=== PATIENT | female | born 1995 ===

== ENCOUNTER 2024-04-23 23:05 | Inpatient (IN) | payer BC ==
[2024-04-24 01:11] VITALS: BP 126/82
[2024-04-24] MEDS ORDERED: LIDOCAINE 2% VISCOUS 6 ML SYR TOP ONE ×4 (01:15→13:45)
[2024-04-24] MEDS ORDERED: MAGNESIUM HYDROXIDE/AL HYDROX 30 ML CUP PO PRN ×2 (01:15→13:45)
[2024-04-24] MEDS ORDERED: PENICILLIN G POTASSIUM 5 MUNITS/110 ML PIGGYBACK IV ONE (01:15)
[2024-04-24] MEDS ORDERED: OXYTOCIN/DEXTROSE 5% 20 UNITS/100 ML BAG IV SCH (01:15)
[2024-04-24] MEDS ORDERED: CALCIUM CARBONATE 500 MG CHEW PO PRN ×2 (01:15→13:45)
[2024-04-24] MEDS ORDERED: PENICILLIN G POTASSIUM 2.5 MUNITS in DEXTROSE 5% 100 ML IV SCH (01:19)
[2024-04-24 01:22] LABS: HEMATOCRIT 38.4 % (35.0-50.0); MCH 29.7 (27-36); MCHC 33.8 g/dl (30-36); MCV 87.9 fl (81-99); RBC 4.38 M/ul (4.3-5.7); RDW 17.3 (10.5-15.0)
[2024-04-24 01:36] LABS: AMPHETAMINES, URINE NEGATIVE (NEGATIVE); BARBITURATES, URINE NEGATIVE (NEGATIVE); BENZODIAZEPINE, URINE NEGATIVE (NEGATIVE); BUPRENORPHINE, URINE NEGATIVE (NEGATIVE); CANNABINOID, URINE NEGATIVE (NEGATIVE); COCAINE, URINE NEGATIVE (NEGATIVE); ECSTASY, URINE NEGATIVE (NEGATIVE); FENTANYL, URINE NEGATIVE (NEGATIVE); METHADONE, URINE NEGATIVE (NEGATIVE); OPIATES, URINE NEGATIVE (NEGATIVE); OXYCODONE, URINE NEGATIVE (NEGATIVE); PHENCYCLIDINE, URINE NEGATIVE (NEGATIVE)
[2024-04-24 01:52] LABS: ABO O; ANTIBODY SCREEN NEGATIVE; RH POSITIVE
[2024-04-24] MEDS ORDERED: PENICILLIN G POTASSIUM 5 MUNITS/10 ML VIAL ONE (04:50)
--- NOTE | 2024-04-24 06:14 | PR ---
[facility] [address] [place], [place] [address] Signed Progress Notes IP Datetime Report Generated by CPN: 04/24/2024 06:14 PROGRESS NOTES: [id number] Other Impressions: extremely slow progression Procedures: Scalp Electrode Plan: Anesthesia Consult VITAL SIGNS: [id number] Vital Signs: Reviewed; Within Normal Limits EXAM: [id number] Dilatation: 8.0 Effacement: 90 Station: -1 MEMBRANES: [id number] Comments: Very slow progress--4.5 cm over 24 hrs and 1 cm over last 2.5 hrs. Suspect contractions are inadequate. Pt also exhausted as has been in 3 times over last 24 hrs. I feel stronger contractions are needed. Discussed this and she is ready for some pain management. I think epidural is best option to allow for her to rest. IUPC and pit augment can then be done. Also, no obvious forebag. She denies SROM. Unclear if or when this occurred. FETUS A: [id number] FHR Baseline: 160 Variability: Moderate 6-25bpm Accelerations: 15X15 Decelerations: Prolonged FHR Category: Category II Presentation: Vertex Comments on Fetus A: Prolonged deceleration _ 2-3 minutes; now improved. FETUS B: [id number] Signing Physician: Amber Kelley MD Copies: ~ *Electronically Signed* 04/24/24 0614 AMBER KELLEY MD PATIENT NAME: SHEBA SINGH PROGRESS NOTE DATE OF : 95 PHYSICIAN: AMBER KELLEY MD RPT #: [id number] REPORT IS CONFIDENTIAL AND NOT TO BE RELEASED WITHOUT AUTHORIZATION
[2024-04-24] MEDS ORDERED: ROPIVACAINE 0.2% 200 ML BAG ONE (06:15)
[2024-04-24] MEDS ORDERED: fentaNYL citrate 100 MCG/2 ML VIAL ONE (06:16)
[2024-04-24] MEDS ORDERED: ePHEDrine sulfate 50 MG/ML AMP ONE (06:44)
[2024-04-24] MEDS ORDERED: LACTATED RINGER'S 2,000 ML IV ONE (07:00)
[2024-04-24] MEDS ORDERED: ROPIVACAINE 0.2% 200 ML BAG EPIDURAL SCH (07:00)
[2024-04-24] MEDS ORDERED: ePHEDrine sulfate 5 MG/ML SYRINGE IV PRN (07:00)
[2024-04-24] MEDS ORDERED: LACTATED RINGER'S 500 ML IV PRN (07:00)
--- NOTE | 2024-04-24 07:02 | PR ---
[facility] [address] [facility] [place] [address] Signed Progress Notes IP Datetime Report Generated by CPN: 04/24/2024 07:02 PROGRESS NOTES: [id number] Other Impressions: extremely slow progression Procedures: Scalp Electrode Other Procedures: ephedrine Plan: Continue Present Management VITAL SIGNS: [id number] Vital Signs: Reviewed; Within Normal Limits EXAM: [id number] Dilatation: 8.0 Effacement: 90 Station: -1 MEMBRANES: [id number] Comments: Prolonged decel after epidural associated with drop in BP which has now returned to her baseline. status currently improved but still w/ decreased variability. Will continue w/ position changes and close observation. FETUS A: [id number] FHR Baseline: 160 Variability: Minimal - >Undetectable to <=5bpm Accelerations: 15X15 Decelerations: Prolonged FHR Category: Category II Presentation: Vertex Comments on Fetus A: Prolonged deceleration _ 2-3 minutes; now improved. FETUS B: [id number] Signing Physician: Amber Kelley MD Copies: ~ *Electronically Signed* 04/24/24701 AMBER KELLEY MD PATIENT NAME: SHEBA SINGH PROGRESS NOTE DATE OF : 95 PHYSICIAN: AMBER KELLEY MD RPT #: [id number] REPORT IS CONFIDENTIAL AND NOT TO BE RELEASED WITHOUT AUTHORIZATION
--- NOTE | 2024-04-24 07:42 | PR ---
[facility] [address] [facility] [place] [address] Signed Progress Notes IP Datetime Report Generated by CPN: 04/24/2024 07:42 PROGRESS NOTES: [id number] Other Impressions: extremely slow progression Procedures: Intrauterine Pressure Catheter Other Procedures: ephedrine Plan: Continue Present Management Other Plans: position changes VITAL SIGNS: [id number] Vital Signs: Reviewed; Within Normal Limits EXAM: [id number] Dilatation: 9.0 Effacement: 90 Station: -1 Contractions: q 5 min MEMBRANES: [id number] Comments: Some progress. Baby very particular about position but currently looks reassuring. I do think she needs more contractions but am reluctant to add pitocin given the status. Will allow to rest now and continue close observation. FETUS A: [id number] FHR Baseline: 160 Variability: Moderate 6-25bpm Accelerations: 15X15 Decelerations: Late; Variable FHR Category: Category II Presentation: Vertex Comments on Fetus A: Prolonged deceleration _ 2-3 minutes; now improved. FETUS B: [id number] Signing Physician: Amber Kelley MD Copies: ~ *Electronically Signed* 04/24/24 07 AMBER KELLEY MD PATIENT NAME: SHEBA SINGH PROGRESS NOTE DATE OF : 95 PHYSICIAN: AMBER KELLEY MD RPT #: [id number] REPORT IS CONFIDENTIAL AND NOT TO BE RELEASED WITHOUT AUTHORIZATION
[2024-04-24] MEDS ORDERED: MAGNESIUM HYDROXIDE 30 ML UDC PO PRN (13:45)
[2024-04-24] MEDS ORDERED: HYDROCORTISONE ACETATE 25 MG SUPP PR PRN (13:45)
[2024-04-24] MEDS ORDERED: OXYTOCIN/0.9 % SODIUM CHLORIDE 500 ML IV SCH (13:45)
[2024-04-24] MEDS ORDERED: WITCH HAZEL/GLYCERIN 1 EA PAD TOP PRN (13:45)
[2024-04-24] MEDS ORDERED: BENZOCAINE 60 ML AEROSOL TOP PRN (13:45)
[2024-04-24] MEDS ORDERED: HYDROCODONE/ACETA 5/325 TAB PO PRN (13:45)
[2024-04-24] MEDS ORDERED: IBUPROFEN 600 MG TAB PO PRN (13:45)
[2024-04-24] MEDS ORDERED: OXYCODONE HCL 5 MG TAB PO PRN (13:45)
[2024-04-24] MEDS ORDERED: ACETAMINOPHEN 325 MG TAB PO PRN (13:45)
[2024-04-24] MEDS ORDERED: OXYCODONE/APAP 5/325 TAB PO PRN (13:45)
[2024-04-24] MEDS ORDERED: SENNOSIDES/DOCUSATE 1 EA TAB PO SCH (21:00)
[2024-04-25 05:25] LABS: HEMATOCRIT 31.8 % (35.0-50.0); HEMOGLOBIN 10.6 g/dL (12.0-18.0); MCH 29.8 (27-36); MCHC 33.5 g/dl (30-36); RBC 3.57 M/ul (4.3-5.7); RDW 17.3 (10.5-15.0)
--- NOTE | 2024-04-25 08:01 | PR ---
[facility] [address] [facility] [place], [place] [address] Signed PP Progress Notes Datetime Report Generated by STACIA: 04/25/2024 08:01 SUBJECTIVE: [id number] Pain: Within Normal Limits Vital Signs: [id number] Vital Signs: Reviewed; Within Normal Limits Cardiovascular: Not Done Respiratory: Not Done Abdomen/Uterus: Abnormal Lochia: Normal Vulva/Perineum: Not Done Breasts: Not Done CVA Tenderness: Not Done Extremities: Normal Incision: Not Applicable Progress: Normal Exam Comments: Fundus firm, NT @ U-2. H/H 10.6/31.8, WBC 21.1, plat 132k IMPRESSION/PLAN/PROCEDURES: [id number] Impression: Normal Progression Plan: Continue Present Management Procedures: None Progress Notes: Mild thrombocytopenia--will repeat tomorrow. Doing well overall. Will continue present care. Signing Physician: Amber Kelley MD Copies: ~ *Electronically Signed* 04/25/24800 AMBER KELLEY MD PATIENT NAME: SHEBA SINGH PROGRESS NOTE DATE OF : 95 PHYSICIAN: AMBER KELLEY MD RPT #: [id number] REPORT IS CONFIDENTIAL AND NOT TO BE RELEASED WITHOUT AUTHORIZATION
[2024-04-26 05:20] LABS: BASOPHILS 0.6 % (0-2); EOSINOPHILS 2.2 % (0-6); HEMATOCRIT 32.8 % (35.0-50.0); HEMOGLOBIN 10.9 g/dL (12.0-18.0); LYMPHOCYTES 22.4 % (24-44); MCH 29.9 (27-36); MCHC 33.2 g/dl (30-36); MCV 89.9 fl (81-99); MONOCYTES 4.4 % (0-12); NEUTROPHILS 70.4 % (39-80); PLATELET COUNT 139 K/uL (140-440); RBC 3.64 M/ul (4.3-5.7); RDW 17.3 (10.5-15.0)
--- NOTE | 2024-04-26 09:37 | PR ---
[facility] [address] [facility] [place], [place] [address] Signed PP Progress Notes Datetime Report Generated by CPN: 04/26/2024 09:37 SUBJECTIVE: [id number] Pain: Within Normal Limits Pain Comments: little sleep Vital Signs: [id number] Vital Signs: Reviewed; Within Normal Limits Cardiovascular: Not Done Respiratory: Not Done Abdomen/Uterus: Abnormal Lochia: Normal Vulva/Perineum: Not Done Breasts: Not Done CVA Tenderness: Not Done Extremities: Normal Incision: Not Applicable Progress: Normal Exam Comments: Fundus firm, NT @ U-2. H/H 10.9/32.8, WBC 13.2, plat 139k IMPRESSION/PLAN/PROCEDURES: [id number] Impression: Normal Progression Other Impression: thrombocytopenia improved; sleep deprivation Plan: Discharge Procedures: None Progress Notes: Doing OK but exhausted. Discussed sleep strategies and need for help w/ the baby. She is otherwise OK for D/C. Signing Physician: Amber Kelley MD Copies: ~ *Electronically Signed* 04/26/24 0937 AMBER KELLEY MD PATIENT NAME: SHEBA SINGH PROGRESS NOTE DATE OF : 95 PHYSICIAN: AMBER KELLEY MD RPT #: [id number] REPORT IS CONFIDENTIAL AND NOT TO BE RELEASED WITHOUT AUTHORIZATION
== END 2024-04-26 13:50 | disposition home or self-care (01) | DRG 806 ==
LOC: FBCO 23:05 → FBC 04-24 00:51
PROVIDERS: Obstetrics & Gynecology; ADMIT Obstetrics & Gynecology; ATTEND Obstetrics & Gynecology
PROC: 10E0XZZ Delivery of Products of Conception, External Approach (ICD-10-PCS; principal; 2024-04-24)
PROC: 0KQM0ZZ Repair Perineum Muscle, Open Approach (ICD-10-PCS; 2024-04-24)
PROC: 3E0R3BZ Introduction of Anesthetic Agent into Spinal Canal, Percutaneous Approach (ICD-10-PCS; 2024-04-24)
PROC: 00HU33Z Insertion of Infusion Device into Spinal Canal, Percutaneous Approach (ICD-10-PCS; 2024-04-24)
DX: O48.0 Post-term pregnancy (principal); O99.12 Other diseases of the blood and blood-forming organs and certain disorders involving the immune mechanism complicating childbirth; Z37.0 Single live birth; O76 Abnormality in fetal heart rate and rhythm complicating labor and delivery; D69.6 Thrombocytopenia, unspecified; Z3A.40 40 weeks gestation of pregnancy; O99.824 Streptococcus B carrier state complicating childbirth; Z98.890 Other specified postprocedural states; O99.02 Anemia complicating childbirth; O69.81X0 Labor and delivery complicated by cord around neck, without compression, not applicable or unspecified; O70.1 Second degree perineal laceration during delivery; O77.0 Labor and delivery complicated by meconium in amniotic fluid
CPT/HCPCS: 01960; 36415; 80307; 82803; 85025; 85027; 85060; 86850; 86900; 86901; A9270; J2540; J2590; J2795; J3010; J7121